=== PATIENT | female | born 1970 | race Two or more races ===

== ENCOUNTER 2017-08-20 08:45 | Inpatient (IN) | payer MEDICAID ==
[~2017-08-20] VITALS: Ht 165.1 cm; Wt 126.1 kg
[2017-08-20 09:34] VITALS: BP 154/79
[2017-08-20] MEDS ORDERED: HALOPERIDOL 5 MG TABLET PO PRN (10:15)
[2017-08-20 10:51] VITALS: BP 139/85
[2017-08-20] MEDS ORDERED: PNEUMOCOCCAL VACCINE POLYVALENT 0.5 ML VIAL [PPSV23] IM ONE (11:45)
[2017-08-20] MEDS ORDERED: CloNIDine HCL 0.1 MG TABLET PO PRN (13:30)
[2017-08-20] MEDS ORDERED: MAGNESIUM HYDROXIDE SUSPENSION 30 ML UDCUP PO PRN (13:30)
[2017-08-20] MEDS ORDERED: IBUPROFEN 600 MG TABLET PO PRN (13:30)
[2017-08-20] MEDS ORDERED: ACETAMINOPHEN 325 MG TABLET PO PRN (13:30)
[2017-08-20] MEDS ORDERED: BACITRACIN 28.4 GM OINTMENT TP PRN (13:30)
[2017-08-20] MEDS ORDERED: PETROLATUM,WHITE 71 GM JELLY TP PRN (13:30)
[2017-08-20] MEDS ORDERED: LOPERAMIDE HCL 2 MG CAPSULE PO PRN (13:30)
[2017-08-20] MEDS ORDERED: ALBUTEROL SULFATE HFA 90 MCG/PUFF 8 GM INHALER IH PRN (13:30)
[2017-08-20] MEDS ORDERED: BENZOCAINE/MENTHOL LOZENGE MM PRN (13:30)
[2017-08-20] MEDS ORDERED: MAG HYDROX/AL HYDROX/SIMETH ES 30 ML SUSPENSION UDCUP PO PRN (13:30)
[2017-08-20 16:03] VITALS: BP 138/87
[2017-08-20] MEDS: CITALOPRAM HYDROBROMIDE 20 MG TABLET PO SCH (16:43)
[2017-08-20] MEDS: ONDANSETRON HCL 4 MG TABLET PO PRN (20:32)
[2017-08-20] MEDS: ZOLPIDEM TARTRATE 10 MG TABLET PO PRN (21:46)
[2017-08-21 06:43] VITALS: BP 134/73
[2017-08-21] MEDS: ONDANSETRON HCL 4 MG TABLET PO PRN (07:02)
[2017-08-21 08:06] VITALS: BP 143/91
[2017-08-21 08:21] LABS: BASOPHILS % (AUTO) 0.5 % (0.0-2.0); EOSINOPHILS % (AUTO) 5.3 % (1.0-6.0); HEMATOCRIT 38.2 % (36-46); HEMOGLOBIN 12.8 g/dL (12.0-16.0); HEMOGLOBIN A1C 5.2 % (4.5-6.2); LYMPHOCYTES % (AUTO) 44.6 % (22.0-44.0); MEAN CORPUSCULAR HEMOGLOBIN 28.5 pg (26.0-34.0); MEAN CORPUSCULAR HGB CONC 33.6 G/dL (31.0-37.0); MEAN CORPUSCULAR VOLUME 85 fL (80-100); MONOCYTES # (AUTO) 0.3 K/uL (0.1-1.0); MONOCYTES % (AUTO) 6.7 % (2.0-9.0); NEUTROPHILS % (AUTO) 42.9 % (40.0-70.0); PLATELET COUNT (AUTO) 342 K/uL (150-450); RED CELL DISTRIBUTION WIDTH 15.4 % (11.5-14.5)
[2017-08-21] MEDS: CITALOPRAM HYDROBROMIDE 20 MG TABLET PO SCH (08:40)
[2017-08-21 08:42] LABS: ALANINE AMINOTRANSFERASE 19 U/L (12-78); ALBUMIN 3.7 g/dL (3.4-5.0); ALKALINE PHOSPHATASE 64 U/L (46-116); ANION GAP 8 mmol/L (8-16); ASPARTATE AMINOTRANSFERASE 19 U/L (15-37); BILIRUBIN,TOTAL 1.1 mg/dL (0.1-1.0); CALCIUM, TOTAL 8.9 mg/dL (8.8-10.5); CARBON DIOXIDE 28 mmol/L (22-29); CHLORIDE 101 mmol/L (98-107); CHOL/HDL RATIO 3.3 (3.9-5.7); CHOLESTEROL 193 mg/dL (131-200); CREATININE 0.83 mg/dL (0.60-1.30); FREE T4 (FREE THYROXINE) 1.07 ng/dL (0.76-1.46); GLOMERULAR FILTR. RATE CALC > 60 mL/min (>60); GLUCOSE,RANDOM 98 mg/dL (70-110); HCG,QUANTITATIVE < 1 mIU/mL (0-6); HDL CHOLESTEROL 59 mg/dL (40-60); LDL CHOL (CALC.) 120 mg/dL (0-130); POTASSIUM 3.5 mmol/L (3.5-5.1); SODIUM SERUM 137 mmol/L (136-145); THYROID STIMULATING HORMONE 1.61 uIU/mL (0.36-3.74); TOTAL PROTEIN, SERUM 7.7 g/dL (6.4-8.2); TRIGLYCERIDES 72 mg/dL (15-150); UREA NITROGEN, BLOOD 9 mg/dL (7-18)
[2017-08-21] MEDS ORDERED: OMEPRAZOLE 20 MG CAPSULE PO SCH (09:00)
[2017-08-21] MEDS ORDERED: DOCUSATE SODIUM 100 MG CAPSULE PO SCH (09:00)
[2017-08-21 16:20] VITALS: BP 137/82
[2017-08-21] MEDS: LORazepam 2 MG TABLET PO PRN (17:03)
[2017-08-21 17:29] VITALS: BP 132/85
[2017-08-22 08:25] VITALS: BP 143/88
[2017-08-22] MEDS ORDERED: CITALOPRAM HYDROBROMIDE 10 MG TABLET PO SCH (09:00)
[2017-08-22] MEDS: FLUoxetine HCL 20 MG CAPSULE PO SCH (09:14)
[2017-08-22] MEDS: LORazepam 2 MG TABLET PO PRN (12:18)
[2017-08-22 16:13] VITALS: BP 131/74
[2017-08-22] MEDS: ZOLPIDEM TARTRATE 10 MG TABLET PO PRN (21:12)
[2017-08-23 06:28] VITALS: BP 135/65
[2017-08-23 08:15] VITALS: BP 111/68
[2017-08-23] MEDS: FLUoxetine HCL 20 MG CAPSULE PO SCH (08:29)
[2017-08-23] MEDS: LORazepam 2 MG TABLET PO PRN (14:38)
[2017-08-23 16:00] VITALS: BP 123/66
[2017-08-23 17:59] VITALS: BP 123/66
[2017-08-24 06:29] VITALS: BP 129/79
[2017-08-24 08:37] VITALS: BP 118/76
[2017-08-24] MEDS: FLUoxetine HCL 20 MG CAPSULE PO SCH (09:26)
[2017-08-24] MEDS: LORazepam 2 MG TABLET PO PRN ×2 (09:26→18:57)
[2017-08-24] MEDS: ONDANSETRON HCL 4 MG TABLET PO PRN (11:05)
[2017-08-24 16:16] VITALS: BP 111/72
[2017-08-24] MEDS: ZOLPIDEM TARTRATE 10 MG TABLET PO PRN (21:08)
[2017-08-25] MEDS: FLUoxetine HCL 20 MG CAPSULE PO SCH (08:15)
[2017-08-25 09:24] VITALS: BP 112/68
[2017-08-25] MEDS: LORazepam 2 MG TABLET PO PRN (12:16)
[2017-08-25 16:17] VITALS: BP 135/80
[2017-08-25] MEDS: ZOLPIDEM TARTRATE 10 MG TABLET PO PRN (21:05)
[2017-08-26 06:36] VITALS: BP 122/66
[2017-08-26 08:09] VITALS: BP 127/73
[2017-08-26] MEDS: FLUoxetine HCL 20 MG CAPSULE PO SCH (10:03)
[2017-08-26] MEDS: FLUoxetine HCL 10 MG CAPSULE PO SCH (11:30)
[2017-08-26] MEDS: LORazepam 2 MG TABLET PO PRN (12:26)
[2017-08-26 16:10] VITALS: BP 106/61
[2017-08-26] MEDS: ZOLPIDEM TARTRATE 10 MG TABLET PO PRN (20:35)
[2017-08-27] MEDS: FLUoxetine HCL 10 MG CAPSULE PO SCH (08:02)
[2017-08-27 08:13] VITALS: BP 117/76
[2017-08-27] MEDS: LORazepam 2 MG TABLET PO PRN (12:22)
[2017-08-27 16:31] VITALS: BP 127/76
[2017-08-27] MEDS: ZOLPIDEM TARTRATE 10 MG TABLET PO PRN (21:33)
[2017-08-28 06:00] VITALS: BP 105/65
[2017-08-28] MEDS: ONDANSETRON HCL 4 MG TABLET PO PRN (07:02)
[2017-08-28] MEDS: FLUoxetine HCL 10 MG CAPSULE PO SCH (08:12)
[2017-08-28 16:54] VITALS: BP 139/81
[2017-08-28] MEDS: LORazepam 2 MG TABLET PO PRN (17:35)
[2017-08-28] MEDS: ZOLPIDEM TARTRATE 10 MG TABLET PO PRN (21:19)
[2017-08-29 05:16] VITALS: BP 138/76
[2017-08-29] MEDS: FLUoxetine HCL 10 MG CAPSULE PO SCH (08:20)
[2017-08-29 08:28] VITALS: BP 109/67
[2017-08-29] MEDS ORDERED: PROZ10 PO (09:17)
[2017-09-08] MEDS ORDERED: THIA100T67 PO (10:34)
== END 2017-08-29 14:15 | disposition home or self-care (01) | DRG 751 ==
LOC: B3A 10:19
PROVIDERS: ADMIT Psychiatry & Neurology Child & Adolescent Psychiatry; ATTEND Psychiatry & Neurology Psychiatry
DX: F33.2 Major depressive disorder, recurrent severe without psychotic features (principal); Z68.42 Body mass index [BMI] 45.0-49.9, adult; I10 Essential (primary) hypertension; E66.9 Obesity, unspecified; F12.90 Cannabis use, unspecified, uncomplicated; F41.9 Anxiety disorder, unspecified; G47.00 Insomnia, unspecified; Z90.49 Acquired absence of other specified parts of digestive tract; Z80.8 Family history of malignant neoplasm of other organs or systems
CPT/HCPCS: 83036; 84439; 84443; Q0162

== ENCOUNTER 2017-09-04 19:47 | Inpatient (IN) | payer MEDICAID ==
[~2017-09-04] VITALS: Ht 172.7 cm; Wt 117.5 kg
[~2017-09-04 19:47] MED LIST: PROZ10 PO
[2017-09-04 20:23] LABS: BASOPHILS % (AUTO) 0.9 % (0.0-2.0); EOSINOPHILS % (AUTO) 1.6 % (1.0-6.0); HEMATOCRIT 36.4 % (36-46); HEMOGLOBIN 12.5 g/dL (12.0-16.0); LYMPHOCYTES # (AUTO) 1.8 K/uL (1.0-4.8); LYMPHOCYTES % (AUTO) 26.5 % (22.0-44.0); MEAN CORPUSCULAR HEMOGLOBIN 28.8 pg (26.0-34.0); MEAN CORPUSCULAR HGB CONC 34.5 G/dL (31.0-37.0); MEAN CORPUSCULAR VOLUME 84 fL (80-100); MONOCYTES # (AUTO) 0.5 K/uL (0.1-1.0); MONOCYTES % (AUTO) 7.4 % (2.0-9.0); NEUTROPHILS # (AUTO) 4.4 K/uL (1.8-7.7); NEUTROPHILS % (AUTO) 63.6 % (40.0-70.0); PLATELET COUNT (AUTO) 272 K/uL (150-450); RED BLOOD CELL COUNT(AUTO) 4.35 MIL/uL (4.00-5.20); RED CELL DISTRIBUTION WIDTH 15.1 % (11.5-14.5)
[2017-09-04 20:33] LABS: ANION GAP 15 mmol/L (8-16); CALCIUM, TOTAL 8.5 mg/dL (8.8-10.5); CARBON DIOXIDE 20 mmol/L (22-29); CHLORIDE 105 mmol/L (98-107); CREATININE 0.95 mg/dL (0.60-1.30); GLOMERULAR FILTR. RATE CALC > 60 mL/min (>60); GLUCOSE,RANDOM 115 mg/dL (70-110); POTASSIUM 3.4 mmol/L (3.5-5.1); SODIUM SERUM 140 mmol/L (136-145); UREA NITROGEN, BLOOD 13 mg/dL (7-18)
[2017-09-04 20:38] LABS: ALANINE AMINOTRANSFERASE 28 U/L (12-78); ALKALINE PHOSPHATASE 61 U/L (46-116); ASPARTATE AMINOTRANSFERASE 28 U/L (15-37); BILIRUBIN,TOTAL 0.7 mg/dL (0.1-1.0); TOTAL PROTEIN, SERUM 7.6 g/dL (6.4-8.2)
[2017-09-04] MEDS ORDERED: LORazepam 2 MG TABLET PO ONE (23:30)
[2017-09-05] MEDS ORDERED: HALOPERIDOL 5 MG TABLET PO PRN (00:45)
[2017-09-05] MEDS ORDERED: LORazepam 2 MG TABLET PO PRN (00:45)
[2017-09-05] MEDS ORDERED: ZOLPIDEM TARTRATE 10 MG TABLET PO PRN (00:45)
[2017-09-05 02:40] VITALS: BP 140/89
[2017-09-05] MEDS ORDERED: PNEUMOCOCCAL VACCINE POLYVALENT 0.5 ML VIAL [PPSV23] IM ONE (04:30)
[2017-09-05 08:12] LABS: CHOL/HDL RATIO 2.4 (3.9-5.7); POTASSIUM 3.5 mmol/L (3.5-5.1)
[2017-09-05 08:55] VITALS: BP 140/94
[2017-09-05] MEDS: OXcarbazepine 300 MG TABLET PO SCH ×2 (10:17→17:03)
[2017-09-05] MEDS: FLUoxetine HCL 20 MG CAPSULE PO SCH (10:17)
[2017-09-05] MEDS: AmLODIPine BESYLATE 5 MG TABLET PO SCH (11:03)
[2017-09-05] MEDS ORDERED: CYANOCOBALAMIN 1,000 MCG/ML VIAL IM ONE (12:00)
[2017-09-05] MEDS ORDERED: CloNIDine HCL 0.1 MG TABLET PO PRN (12:00)
[2017-09-05 12:49] VITALS: BP 123/73
[2017-09-05 16:13] VITALS: BP 126/89
[2017-09-05] MEDS ORDERED: ACETAMINOPHEN 325 MG TABLET PO PRN (21:15)
[2017-09-05] MEDS ORDERED: IBUPROFEN 600 MG TABLET PO PRN (21:15)
[2017-09-06 02:05] VITALS: BP 136/73
[2017-09-06] MEDS: FOLIC ACID 1 MG TABLET PO SCH (08:18)
[2017-09-06] MEDS: OXcarbazepine 300 MG TABLET PO SCH ×2 (08:18→16:17)
[2017-09-06] MEDS: FLUoxetine HCL 20 MG CAPSULE PO SCH (08:18)
[2017-09-06] MEDS: THIAMINE HCL 100 MG TABLET PO SCH (08:18)
[2017-09-06] MEDS: AmLODIPine BESYLATE 5 MG TABLET PO SCH (08:18)
[2017-09-06 08:53] VITALS: BP 140/96
[2017-09-06 13:14] VITALS: BP 122/76
[2017-09-06 16:45] VITALS: BP 160/92
[2017-09-06 17:15] VITALS: BP 135/86
[2017-09-06 17:45] VITALS: BP 135/86
[2017-09-07 00:05] VITALS: BP 105/62
[2017-09-07] MEDS: AmLODIPine BESYLATE 5 MG TABLET PO SCH (08:19)
[2017-09-07] MEDS: THIAMINE HCL 100 MG TABLET PO SCH (08:19)
[2017-09-07] MEDS: FOLIC ACID 1 MG TABLET PO SCH (08:19)
[2017-09-07] MEDS: OXcarbazepine 300 MG TABLET PO SCH ×2 (08:19→16:26)
[2017-09-07] MEDS: FLUoxetine HCL 20 MG CAPSULE PO SCH (08:19)
[2017-09-07 08:30] VITALS: BP 126/80
[2017-09-07 16:00] VITALS: BP 116/66
[2017-09-08 03:37] VITALS: BP 125/96
[2017-09-08] MEDS: THIAMINE HCL 100 MG TABLET PO SCH (08:21)
[2017-09-08] MEDS: OXcarbazepine 300 MG TABLET PO SCH (08:21)
[2017-09-08] MEDS: FOLIC ACID 1 MG TABLET PO SCH (08:21)
[2017-09-08] MEDS: AmLODIPine BESYLATE 5 MG TABLET PO SCH (08:22)
[2017-09-08 08:59] VITALS: BP 149/99
[2017-09-08] MEDS ORDERED: FLUoxetine HCL 20 MG CAPSULE PO SCH (09:00)
[2017-09-08] MEDS ORDERED: AMLO-511 PO (10:34)
[2017-09-08] MEDS ORDERED: THIA100 PO (10:34)
[2017-09-08] MEDS ORDERED: FOLI1 PO (10:34)
[2017-09-08] MEDS ORDERED: OXCA300T PO (10:34)
[2017-09-08] MEDS ORDERED: FLUO-191 PO (10:34)
== END 2017-09-08 13:15 | disposition home or self-care (01) | DRG 750 ==
LOC: EMS 19:48 → B2S 09-05 00:30
PROVIDERS: ADMIT Psychiatry & Neurology Psychiatry; ATTEND Psychiatry & Neurology Psychiatry
DX: F25.9 Schizoaffective disorder, unspecified (principal); R45.851 Suicidal ideations; I10 Essential (primary) hypertension; F60.3 Borderline personality disorder; Z53.29 Procedure and treatment not carried out because of patient's decision for other reasons; F10.10 Alcohol abuse, uncomplicated; F12.90 Cannabis use, unspecified, uncomplicated; E87.6 Hypokalemia; Z87.891 Personal history of nicotine dependence; Z91.013 Allergy to seafood
CPT/HCPCS: 84132; 87081; 99285; G0480; J3420

== ENCOUNTER 2018-02-08 17:39 | Inpatient (IN) | payer MEDICAID ==
[~2018-02-08] VITALS: Ht 172.7 cm; Wt 122.9 kg
[~2018-02-08 17:39] MED LIST changes: +AMLO-511 PO; +FLUO-191 PO; +FOLI1 PO; +OXCA300T29 PO; -PROZ10 PO; +THIA100T67 PO
[2018-02-08] MEDS ORDERED: LORazepam 2 MG TABLET PO PRN (19:30)
[2018-02-08] MEDS ORDERED: HALOPERIDOL 5 MG TABLET PO PRN (19:30)
[2018-02-08] MEDS ORDERED: FLUoxetine HCL 20 MG CAPSULE PO SCH (20:00)
[2018-02-08 20:06] VITALS: BP 152/94
[2018-02-08] MEDS ORDERED: PNEUMOCOCCAL VACCINE POLYVALENT 0.5 ML VIAL [PPSV23] IM ONE (20:30)
[2018-02-08 20:57] VITALS: BP 150/81
[2018-02-08] MEDS ORDERED: ACETAMINOPHEN 325 MG TABLET PO PRN (21:00)
[2018-02-08] MEDS ORDERED: DOCUSATE SODIUM 100 MG CAPSULE PO PRN (21:00)
[2018-02-08] MEDS ORDERED: ALBUTEROL SULFATE HFA 90 MCG/PUFF 8 GM INHALER IH PRN (21:00)
[2018-02-08] MEDS ORDERED: LOPERAMIDE HCL 2 MG CAPSULE PO PRN (21:00)
[2018-02-08] MEDS ORDERED: MAGNESIUM HYDROXIDE SUSPENSION 30 ML UDCUP PO PRN (21:00)
[2018-02-08] MEDS ORDERED: MAG HYDROX/AL HYDROX/SIMETH ES 30 ML SUSPENSION UDCUP PO PRN (21:00)
[2018-02-08] MEDS ORDERED: GuaiFENesin/D-METHORPHAN [SUGAR-FREE] 200-20MG/10 ML SYRUP UDCUP PO PRN (21:00)
[2018-02-08] MEDS ORDERED: PETROLATUM,WHITE 71 GM JELLY TP PRN (21:00)
[2018-02-08] MEDS ORDERED: NICOTINE 14 MG/24 HOUR PATCH TD PRN (21:00)
[2018-02-08] MEDS ORDERED: ONDANSETRON HCL 4 MG TABLET PO PRN (21:00)
[2018-02-08] MEDS ORDERED: CloNIDine HCL 0.1 MG TABLET PO PRN (21:00)
[2018-02-08] MEDS: OXcarbazepine 300 MG TABLET PO SCH (21:14)
[2018-02-08] MEDS: AmLODIPine BESYLATE 5 MG TABLET PO SCH (21:14)
[2018-02-08 22:15] VITALS: BP 139/78
[2018-02-09 06:04] VITALS: BP 144/84
[2018-02-09 07:13] LABS: BASOPHILS % (AUTO) 0.5 % (0.0-2.0); EOSINOPHILS % (AUTO) 9.5 % (1.0-6.0); LYMPHOCYTES % (AUTO) 52.9 % (22.0-44.0); MEAN CORPUSCULAR HEMOGLOBIN 29.2 pg (26.0-34.0); MEAN CORPUSCULAR HGB CONC 34.1 G/dL (31.0-37.0); MEAN CORPUSCULAR VOLUME 86 fL (80-100); MONOCYTES # (AUTO) 0.3 K/uL (0.1-1.0); MONOCYTES % (AUTO) 8.7 % (2.0-9.0); NEUTROPHILS # (AUTO) 1.1 K/uL (1.8-7.7); NEUTROPHILS % (AUTO) 28.4 % (40.0-70.0); PLATELET COUNT (AUTO) 284 K/uL (150-450); RED BLOOD CELL COUNT(AUTO) 4.44 MIL/uL (4.00-5.20)
[2018-02-09 07:47] LABS: ALANINE AMINOTRANSFERASE 18 U/L (12-78); ALBUMIN 3.4 g/dL (3.4-5.0); ALKALINE PHOSPHATASE 51 U/L (46-116); ANION GAP 6 mmol/L (8-16); ASPARTATE AMINOTRANSFERASE 12 U/L (15-37); BILIRUBIN,TOTAL 0.6 mg/dL (0.1-1.0); CALCIUM, TOTAL 8.6 mg/dL (8.8-10.5); CARBON DIOXIDE 29 mmol/L (22-29); CHLORIDE 103 mmol/L (98-107); CHOL/HDL RATIO 3.6 (3.9-5.7); CHOLESTEROL 152 mg/dL (131-200); CREATININE 0.84 mg/dL (0.60-1.30); FREE T4 (FREE THYROXINE) 1.07 ng/dL (0.76-1.46); GLOMERULAR FILTR. RATE CALC > 60 mL/min (>60); GLUCOSE,RANDOM 97 mg/dL (70-110); HCG,QUANTITATIVE < 1 mIU/mL (0-6); HDL CHOLESTEROL 42 mg/dL (40-60); LDL CHOL (CALC.) 94 mg/dL (0-130); POTASSIUM 4.1 mmol/L (3.5-5.1); SODIUM SERUM 138 mmol/L (136-145); THYROID STIMULATING HORMONE 0.48 uIU/mL (0.36-3.74); TOTAL PROTEIN, SERUM 6.6 g/dL (6.4-8.2); TRIGLYCERIDES 78 mg/dL (15-150); UREA NITROGEN, BLOOD 8 mg/dL (7-18)
[2018-02-09 07:58] LABS: HEMOGLOBIN A1C 4.7 % (4.5-6.2)
[2018-02-09 08:08] VITALS: BP 142/86
[2018-02-09] MEDS: FLUoxetine HCL 20 MG CAPSULE PO SCH (08:46)
[2018-02-09] MEDS: FOLIC ACID 1 MG TABLET PO SCH (08:46)
[2018-02-09] MEDS: OXcarbazepine 300 MG TABLET PO SCH ×2 (08:46→16:31)
[2018-02-09] MEDS: AmLODIPine BESYLATE 5 MG TABLET PO SCH (08:46)
[2018-02-09] MEDS: THIAMINE HCL 100 MG TABLET PO SCH (08:46)
[2018-02-09 17:09] VITALS: BP 113/71
[2018-02-10 05:50] VITALS: BP 116/76
[2018-02-10 08:16] VITALS: BP 119/83
[2018-02-10 08:31] LABS: APPEARANCE,URINE CLEAR (CLEAR); BILIRUBIN,URINE NEGATIVE (NEGATIVE); GLUCOSE, URINE (UA) NEGATIVE (NEGATIVE); KETONES,URINE NEGATIVE (NEGATIVE); LEUKOCYTE ESTERASE ,URINE NEGATIVE (NEGATIVE); NITRATE,URINE NEGATIVE (NEGATIVE); OCCULT BLOOD,URINE NEGATIVE (NEGATIVE); PROTEIN,URINE NEGATIVE (NEGATIVE); UROBILINOGEN,URINE 0.2 mg/dL (<=1.0)
[2018-02-10 08:37] LABS: AMPHET/METH SCREEN,URINE NEGATIVE (NEGATIVE); BARBITURATE SCREEN, URINE NEGATIVE (NEGATIVE); BENZODIAZEPINES SCREEN,URINE NEGATIVE (NEGATIVE); CANNABINOID SCREEN,URINE POSITIVE (NEGATIVE); COCAINE SCREEN,URINE NEGATIVE (NEGATIVE); METHADONE SCREEN, URINE NEGATIVE (NEGATIVE); OPIATE SCREEN,URINE NEGATIVE (NEGATIVE); PHENCYCLIDINE SCREEN,URINE NEGATIVE (NEGATIVE)
[2018-02-10] MEDS: FLUoxetine HCL 20 MG CAPSULE PO SCH (08:54)
[2018-02-10] MEDS: OXcarbazepine 300 MG TABLET PO SCH ×2 (08:54→16:10)
[2018-02-10] MEDS: THIAMINE HCL 100 MG TABLET PO SCH (08:54)
[2018-02-10] MEDS: FOLIC ACID 1 MG TABLET PO SCH (08:54)
[2018-02-10] MEDS: AmLODIPine BESYLATE 5 MG TABLET PO SCH (08:59)
[2018-02-10] MEDS: IBUPROFEN 400 MG TABLET PO PRN (16:10)
[2018-02-10 16:22] VITALS: BP 120/88
[2018-02-10] MEDS: ZOLPIDEM TARTRATE 10 MG TABLET PO PRN (21:02)
[2018-02-11 05:12] VITALS: BP 116/86
[2018-02-11] MEDS: THIAMINE HCL 100 MG TABLET PO SCH (08:34)
[2018-02-11] MEDS: FOLIC ACID 1 MG TABLET PO SCH (08:34)
[2018-02-11] MEDS: FLUoxetine HCL 20 MG CAPSULE PO SCH (08:35)
[2018-02-11] MEDS: AmLODIPine BESYLATE 5 MG TABLET PO SCH (08:35)
[2018-02-11] MEDS: OXcarbazepine 300 MG TABLET PO SCH ×2 (08:35→16:13)
[2018-02-11 08:49] VITALS: BP 121/81
[2018-02-11 16:08] VITALS: BP 123/83
[2018-02-11 20:14] VITALS: BP 120/80
[2018-02-11] MEDS: ZOLPIDEM TARTRATE 10 MG TABLET PO PRN (20:14)
[2018-02-11] MEDS: IBUPROFEN 400 MG TABLET PO PRN (20:15)
[2018-02-12 01:13] VITALS: BP 109/71
[2018-02-12 08:12] VITALS: BP 120/70
[2018-02-12 08:22] LABS: BASOPHILS % (AUTO) 0.9 % (0.0-2.0); EOSINOPHILS % (AUTO) 8.3 % (1.0-6.0); HEMATOCRIT 39.6 % (36-46); HEMOGLOBIN 13.4 g/dL (12.0-16.0); LYMPHOCYTES # (AUTO) 1.9 K/uL (1.0-4.8); LYMPHOCYTES % (AUTO) 47.5 % (22.0-44.0); MEAN CORPUSCULAR HEMOGLOBIN 28.6 pg (26.0-34.0); MEAN CORPUSCULAR HGB CONC 33.9 G/dL (31.0-37.0); MEAN CORPUSCULAR VOLUME 84 fL (80-100); MONOCYTES # (AUTO) 0.3 K/uL (0.1-1.0); MONOCYTES % (AUTO) 7.8 % (2.0-9.0); NEUTROPHILS # (AUTO) 1.5 K/uL (1.8-7.7); NEUTROPHILS % (AUTO) 35.5 % (40.0-70.0); PLATELET COUNT (AUTO) 279 K/uL (150-450); RED BLOOD CELL COUNT(AUTO) 4.69 MIL/uL (4.00-5.20); RED CELL DISTRIBUTION WIDTH 15.2 % (11.5-14.5)
[2018-02-12 08:34] LABS: ANION GAP 7 mmol/L (8-16); CALCIUM, TOTAL 8.5 mg/dL (8.8-10.5); CARBON DIOXIDE 28 mmol/L (22-29); CHLORIDE 100 mmol/L (98-107); CREATININE 0.73 mg/dL (0.60-1.30); GLOMERULAR FILTR. RATE CALC > 60 mL/min (>60); GLUCOSE,RANDOM 90 mg/dL (70-110); POTASSIUM 4.1 mmol/L (3.5-5.1); SODIUM SERUM 135 mmol/L (136-145); UREA NITROGEN, BLOOD 8 mg/dL (7-18)
[2018-02-12] MEDS: FOLIC ACID 1 MG TABLET PO SCH (09:22)
[2018-02-12] MEDS: THIAMINE HCL 100 MG TABLET PO SCH (09:23)
[2018-02-12] MEDS: AmLODIPine BESYLATE 5 MG TABLET PO SCH (09:23)
[2018-02-12] MEDS: OXcarbazepine 300 MG TABLET PO SCH ×2 (09:23→17:01)
[2018-02-12] MEDS: FLUoxetine HCL 20 MG CAPSULE PO SCH (09:23)
[2018-02-12 16:29] VITALS: BP 115/76
[2018-02-12] MEDS: ZOLPIDEM TARTRATE 10 MG TABLET PO PRN (20:33)
[2018-02-13 06:11] VITALS: BP 116/70
[2018-02-13 08:30] VITALS: BP 147/96
[2018-02-13] MEDS: THIAMINE HCL 100 MG TABLET PO SCH (09:01)
[2018-02-13] MEDS: FOLIC ACID 1 MG TABLET PO SCH (09:01)
[2018-02-13] MEDS: BuPROPion HCL XL 150 MG ER TABLET PO SCH (09:01)
[2018-02-13] MEDS: OXcarbazepine 300 MG TABLET PO SCH ×2 (09:01→16:01)
[2018-02-13] MEDS: AmLODIPine BESYLATE 5 MG TABLET PO SCH (09:01)
[2018-02-13 16:29] VITALS: BP 132/86
[2018-02-13] MEDS: IBUPROFEN 400 MG TABLET PO PRN (17:57)
[2018-02-13] MEDS: ZOLPIDEM TARTRATE 10 MG TABLET PO PRN (22:00)
[2018-02-14 02:26] VITALS: BP 112/71
[2018-02-14 08:12] VITALS: BP 138/88
[2018-02-14] MEDS: THIAMINE HCL 100 MG TABLET PO SCH (09:00)
[2018-02-14] MEDS: BuPROPion HCL XL 150 MG ER TABLET PO SCH (09:00)
[2018-02-14] MEDS: AmLODIPine BESYLATE 5 MG TABLET PO SCH (09:00)
[2018-02-14] MEDS: FOLIC ACID 1 MG TABLET PO SCH (09:00)
[2018-02-14] MEDS: OXcarbazepine 300 MG TABLET PO SCH (09:00)
[2018-02-14] MEDS ORDERED: BUPR-47 PO (12:00)
[2018-02-14] MEDS ORDERED: BUPR-93 PO (12:28)
[2018-02-14] MEDS ORDERED: AMLO2.5T2 PO (12:28)
[2018-02-14] MEDS ORDERED: THIA100T67 PO (12:35)
[2018-02-14] MEDS ORDERED: FOLI1 PO (12:35)
== END 2018-02-14 13:20 | disposition home or self-care (01) | DRG 751 ==
LOC: B2S 19:00
PROVIDERS: ADMIT Psychiatry & Neurology Child & Adolescent Psychiatry; ATTEND Psychiatry & Neurology Child & Adolescent Psychiatry
DX: F33.2 Major depressive disorder, recurrent severe without psychotic features (principal); E87.1 Hypo-osmolality and hyponatremia; D72.819 Decreased white blood cell count, unspecified; F10.10 Alcohol abuse, uncomplicated; F12.10 Cannabis abuse, uncomplicated; F41.9 Anxiety disorder, unspecified; I10 Essential (primary) hypertension; M54.5 Low back pain; Z28.21 Immunization not carried out because of patient refusal; Z91.013 Allergy to seafood; Z79.899 Other long term (current) drug therapy; Z90.49 Acquired absence of other specified parts of digestive tract; Z71.41 Alcohol abuse counseling and surveillance of alcoholic; Z71.51 Drug abuse counseling and surveillance of drug abuser
CPT/HCPCS: 80307; 83036; 84439; 84443; 87081